=== PATIENT | male | born 1955 | race Caucasian/White ===

== ENCOUNTER 2017-08-15 11:17 | Day surgery (SDC) | payer OTHER ==
[2017-08-11 16:33] VITALS: BMI 29.7
[2017-08-15] MEDS ORDERED: PROPOFOL 20 ML ONE (12:08)
[2017-08-15] MEDS ORDERED: MIDAZOLAM HCL 2 MG/2 ML SINGLE DOSE VIAL ONE (12:08)
[2017-08-15] MEDS ORDERED: ONDANSETRON 4 MG/2 ML VIAL IVPUSH PRN (13:46)
[2017-08-15] MEDS ORDERED: PROMETHAZINE HCL 25 MG/1 ML VIAL IVPUSH PRN (13:46)
[2017-08-15] MEDS ORDERED: oxyCODONE HCL 5 MG TABLET PO PRN ×2 (13:46)
[2017-08-15 15:23] VITALS: BP 149/79; PULSE 68; TEMP 97.9
--- NOTE | 2017-08-17 14:17 | OP ---
DATE OF OPERATION: 08/15/2017 LOCATION: [facility]. SURGEON: Tristian Mckeon MD [employer] SUPERINTENDENT: AILEEN May PREOPERATIVE DIAGNOSES: 1. Left knee medial and lateral meniscal tear. 2. Left knee cartilage injury. 3. Left knee synovitis. POSTOPERATIVE DIAGNOSES: 1. Left knee medial and lateral meniscal tear. 2. Left knee cartilage injury. 3. Left knee synovitis. PROCEDURE: 1. Left knee arthroscopy with partial meniscectomy of medial and lateral meniscus. 2. Left knee arthroscopy with chondroplasty and abrasion-plasty. 3. Left knee arthroscopy with synovectomy and removal of medial plica. CPT CODES: 97377, [id number], [id number]. FINDINGS: 1. Medial meniscus body and posterior horn tear. 2. Lateral meniscus body and posterior horn tear with anterior horn tear. 3. Synovitis, patellofemoral, medial and lateral notch area. 4. Copious amounts of loose bodies. 5. Central grade 2 cartilage injury, medial tibial plateau, with 2 to 4 changes of medial femoral condyle. 6. ACL and PCL intact. 7. Diffuse grade 2 to 3 cartilage injury, lateral joint line. 8. Central grade 2 to 4 cartilage injury, patella and patellofemoral trochlea. PROCEDURE: Informed consent was obtained. The patient came to the operating room, where the lower extremity was prepped and draped in a sterile fashion. A tourniquet was placed on the upper thigh, but not inflated. Using standard arthroscopic technique, a lateral incision and portal was made to allow for introduction of the camera into the suprapatellar bursa. This was then taken to the medial joint line, where under direct visualization, a medial incision and portal was made. Excessive synovium noted in the medial, lateral and patellofemoral and notch area was removed by an upbiter, shaver and Bovie cautery. This was found to bring in inflammatory tissue into the joint surface, a source of pain and dysfunction. Probing of the medial and lateral meniscus found tears, as described in the findings. These were removed with the upbiter and shaver and taken back to a stable rim. Grade 2 to 3 degenerative changes were treated with a chondroplasty, removing all flaking surfaces with low-setting Bovie along the periphery to prevent further flaking. Grade 4 changes, as noted, were treated with an abrasoplasty, creating a bleeding surface at the bone/cartilage interface. Aggressive debridement with shaver/loly created bleeding surface. Micro fracture also done when indicated in findings All areas of the knee were once again reexamined. The knee was then drained and a single suture was placed in all portals. A sterile dressing was placed and the patient was transferred to the recovery room without complication. TRISTIAN MCKEON M.D. [id number]
--- NOTE | 2017-08-20 14:51 | PATH ---
Surgical Pathology Report Patient Name: RIKKI TOLEDO [facility]. Rec. #: [id number] /Age/Gender: 1955 (Age: 62) / M Account: [id number] Location: [facility] AM[facility] Taken: 08/15/2017 Received: 08/15/2017 Reported: 08/20/2017 Physicians: Tristian Diamond M.D. Specimen(s) Received LEFT KNEE SHAVINGS Clinical History Left knee internal derangement Final Diagnosis KNEE, LEFT, ARTHROSCOPIC SHAVINGS: FIBROSYNOVIAL TISSUE AND CARTILAGE. Electronically Signed Rosio Dugan M.D. Gross Description Received in formalin, labeled "left knee shavings," is a 3.8 x 3.5 x 0.4 cm. aggregate of rodriguez-yellow soft tissue fragments. A merchandiser retail representative portion is submitted in one cassette. /08/18/201708/18/2017
== END 2017-08-15 15:45 | disposition home or self-care (01) ==
LOC: FASU 11:17
PROVIDERS: ATTEND Orthopaedic Surgery
PROC: 0SBD4ZZ Excision of Left Knee Joint, Percutaneous Endoscopic Approach (ICD-10-PCS; 2017-08-15)
PROC: 0SBD4ZZ Excision of Left Knee Joint, Percutaneous Endoscopic Approach (ICD-10-PCS; 2017-08-15)
PROC: 0SBD4ZZ Excision of Left Knee Joint, Percutaneous Endoscopic Approach (ICD-10-PCS; principal; 2017-08-15 12:57)
DX: S83.242A Other tear of medial meniscus, current injury, left knee, initial encounter (principal); S83.282A Other tear of lateral meniscus, current injury, left knee, initial encounter; S83.8X2A Sprain of other specified parts of left knee, initial encounter; M65.862 Other synovitis and tenosynovitis, left lower leg; X58.XXXA Exposure to other specified factors, initial encounter; Y93.9 Activity, unspecified; Y92.9 Unspecified place or not applicable
CPT/HCPCS: 88304-TC; 94760

== ENCOUNTER 2020-09-08 04:31 | Day surgery (SDC) | payer OTHER ==
[2020-09-05 12:02] VITALS: BMI 27.6
[2020-09-08] MEDS ORDERED: BUPIVACAINE HCL/PF 0.5% (5 MG/ML) 30 ML VIAL IJ ONE (10:27)
[2020-09-08] MEDS ORDERED: IOHEXOL 180 MG/1 ML ML IJ ONE (10:27)
[2020-09-08 12:04] VITALS: TEMP 97.8
[2020-09-08 12:13] VITALS: PULSE 68
[2020-09-08 12:40] VITALS: BP 140/78
[2020-09-08] MEDS ORDERED: LIDOCAINE HCL/PF 1% SDV 5ML VIAL ONE (13:51)
== END 2020-09-08 12:00 | disposition home or self-care (01) ==
LOC: JASU-SURG 04:31
PROVIDERS: ATTEND Pain Medicine Pain Medicine
PROC: BR14YZZ Fluoroscopy of Cervical Facet Joint(s) using Other Contrast (ICD-10-PCS; 2020-09-08)
PROC: 3E0T3BZ Introduction of Anesthetic Agent into Peripheral Nerves and Plexi, Percutaneous Approach (ICD-10-PCS; principal; 2020-09-08 10:00)
DX: M47.812 Spondylosis without myelopathy or radiculopathy, cervical region (principal)
CPT/HCPCS: 76000-TC-FY